=== PATIENT | female | born 1960 | race Two or more races ===

== ENCOUNTER 2016-10-31 18:00 | Emergency (ER) | payer MEDICAID ==
[~2016-10-31] VITALS: Ht 152.4 cm; Wt 70.3 kg
[~2016-10-31 18:00] MED LIST: IBUP200C14 PO
[2016-10-31 20:32] VITALS: BP 113/80
[2016-10-31] MEDS ORDERED: cefTRIAXone SOD 1,000 MG VL IM ONE (21:00)
== END 2016-10-31 22:15 | disposition home or self-care (01) ==
LOC: ER 18:02
DX: S61.250A Open bite of right index finger without damage to nail, initial encounter (principal); Z88.6 Allergy status to analgesic agent; Z79.899 Other long term (current) drug therapy; Z90.49 Acquired absence of other specified parts of digestive tract; W54.0XXA Bitten by dog, initial encounter; Y93.89 Activity, other specified; Y92.89 Other specified places as the place of occurrence of the external cause; Y99.8 Other external cause status
CPT/HCPCS: 73130; 96372; 99284; J0696

== ENCOUNTER 2020-06-16 14:57 | Inpatient (IN) | payer MEDICAID ==
[~2020-06-16] VITALS: Ht 149.9 cm; Wt 65.4 kg
[~2020-06-16 14:57] MED LIST changes: -IBUP200C14 PO; +PANT40T PO
[2020-06-16 16:20] LABS: Urine WBC None Seen /hpf (0 - 5)
[2020-06-16 16:32] LABS: Urine Bacteria FEW /hpf (None Seen); Urine Blood Negative /uL (Negative); Urine Specific Gravity 1.004 (1.001-1.035)
[2020-06-16 16:46] LABS: Amphetamine Screen, Urine NEGATIVE (NEGATIVE); Barbiturate Scree,Urine NEGATIVE (NEGATIVE); Benzodiazephine Screen, Urine NEGATIVE (NEGATIVE); Cannabinoid Screen, Urine NEGATIVE (NEGATIVE); Cocaine Screen, Urine NEGATIVE (NEGATIVE); Phencyclidine Screen, Urine NEGATIVE (NEGATIVE)
[2020-06-16 16:55] LABS: Opiate Scree,Urine NEGATIVE (NEGATIVE)
[2020-06-16] MEDS ORDERED: THIAMINE 100mg/ml INJ (200mg/2ml VIAL) IV ONE (17:00)
[2020-06-16] MEDS ORDERED: SODIUM CHLORIDE 0.9% 1,000 ML IVB ONE (17:00)
[2020-06-16] MEDS ORDERED: DEXTROSE (50%) 50ML SYRG IV ONE (17:00)
[2020-06-16] MEDS ORDERED: FOLIC ACID 1 MG, MULTIPLE VITAMIN 10 ML, MAGNESIUM SULF SDV 50% 8 MEQ, THIAMINE INJ 100... INJ STA ×5 (17:31)
[2020-06-16 18:24] LABS: Basophils # (auto) 0 10 ^3/uL (0-0.2); Basophils % (auto) 0.9 % (0.0-2.0); Eosinophils # (auto) 0 10 ^3/uL (0-0.8); Eosinophils % (auto) 0.4 % (0.0-7.0); Hematocrit 43.3 % (36.0-46.0); Hemoglobin 14.7 g/dL (12.2-16.2); Lymphocytes # (auto) 1.2 10 ^3/uL (0.4-5.4); Lymphocytes % (auto) 24.8 % (10.0-50.0); Mean Corpuscular Hemoglobin 31.4 pg (28.0-32.0); Mean Corpuscular Hgb Conc. 33.9 g/dL (32.0-36.0); Mean Corpuscular Volume 92.5 fL (80.0-100.0); Monocytes # (auto) 0.3 10 ^3/uL (0-1.3); Neutrophils # (auto) 3.5 10 ^3/uL (1.6-8.6); Neutrophils % (auto) 68.9 % (37.0-80.0); Nucleated Red Blood Cells % 0.2 %; Platelet Count (auto) 295 10^3/uL (140-450); Red Blood Cells 4.68 10^6/uL (4.0-5.20); Red Cell Distribution Width 14.2 % (11.8-14.3)
[2020-06-16 18:38] LABS: Albumin 4.2 g/dL (3.4-5.0); Calcium 9.3 mg/dL (8.5-10.1); Potassium 3.7 mmol/L (3.5-5.1)
[2020-06-16 18:44] LABS: BUN/Creatinine Ratio 14.5; Bilirubin, Total 0.4 mg/dL (0.2-1.0); Total Protein 8.3 g/dL (6.4-8.2)
[2020-06-17] MEDS ORDERED: ONDANSETRON HCL 4 MG/2 ML VIAL IV ONE (03:30)
[2020-06-17] MEDS ORDERED: ACETAMINOPHEN 325 MG TAB PO PRN (07:30)
[2020-06-17] MEDS ORDERED: D5W/SOD CHL 0.45% 1,000 ML IV SCH (07:30)
[2020-06-17] MEDS ORDERED: DOCUSATE SOD 100 MG CAP PO PRN (07:30)
[2020-06-17] MEDS ORDERED: NITROGLYCERIN 0.4 MG SL TAB SL PRN (07:30)
[2020-06-17] MEDS: LORazepam 2MG/ML-1ML VIAL IV PRN ×3 (08:00→20:18)
[2020-06-17] MEDS: FOLIC ACID 1 MG TAB PO SCH (09:56)
[2020-06-17] MEDS: ASCORBIC ACID 500 MG TAB PO SCH ×2 (09:56→22:03)
[2020-06-17] MEDS: ENOXAPARIN SOD 40 MG/0.4 ML SYRINGE SC SCH (09:57)
[2020-06-17] MEDS: ZINC SULFATE 220mg CAP or TAB PO SCH (09:57)
[2020-06-17] MEDS: THIAMINE HCL 100 MG TAB PO SCH (09:57)
[2020-06-17] MEDS ORDERED: FAMOTIDINE 20 MG TAB PO SCH (10:00)
[2020-06-17] MEDS ORDERED: MULTIPLE VITAMIN TAB PO SCH (10:00)
[2020-06-17] MEDS: ONDANSETRON HCL 4 MG/2 ML VIAL IV PRN (14:13)
[2020-06-17 14:19] LABS: Basophils # (auto) 0 10 ^3/uL (0-0.2); Basophils % (auto) 0.7 % (0.0-2.0); Eosinophils # (auto) 0 10 ^3/uL (0-0.8); Eosinophils % (auto) 0.2 % (0.0-7.0); Hematocrit 37.5 % (36.0-46.0); Hemoglobin 12.8 g/dL (12.2-16.2); Lymphocytes # (auto) 0.8 10 ^3/uL (0.4-5.4); Lymphocytes % (auto) 18.2 % (10.0-50.0); Mean Corpuscular Hemoglobin 31.5 pg (28.0-32.0); Mean Corpuscular Volume 92.5 fL (80.0-100.0); Monocytes # (auto) 0.4 10 ^3/uL (0-1.3); Neutrophils # (auto) 3.2 10 ^3/uL (1.6-8.6); Neutrophils % (auto) 71.9 % (37.0-80.0); Nucleated Red Blood Cells % 0.1 %; Platelet Count (auto) 221 10^3/uL (140-450); Red Blood Cells 4.06 10^6/uL (4.0-5.20); White Blood Cell 4.5 10^3/uL (4.4-10.8)
[2020-06-17 14:37] LABS: Albumin 3.5 g/dL (3.4-5.0)
[2020-06-17 14:41] LABS: BUN/Creatinine Ratio 21.4; Bilirubin, Total 0.7 mg/dL (0.2-1.0); Total Protein 7.1 g/dL (6.4-8.2)
[2020-06-17] MEDS: GABAPENTIN 300 MG CAP PO SCH ×2 (16:38→22:02)
[2020-06-17] MEDS: D5W/SOD CHL 0.45% 1,000 ML IV SCH (16:39)
[2020-06-17 20:00] VITALS: BP 142/86
[2020-06-17 22:00] VITALS: BP 159/97
[2020-06-17] MEDS: PANTOPRAZOLE 40 MG TAB PO SCH (22:02)
[2020-06-18] MEDS: D5W/SOD CHL 0.45% 1,000 ML IV SCH ×2 (04:00→15:12)
[2020-06-18] MEDS: ONDANSETRON HCL 4 MG/2 ML VIAL IV PRN (04:58)
[2020-06-18] MEDS: LORazepam 2MG/ML-1ML VIAL IV PRN (04:58)
[2020-06-18 05:00] VITALS: BP 133/85
[2020-06-18] MEDS: GABAPENTIN 300 MG CAP PO SCH ×2 (05:22→15:12)
[2020-06-18 06:31] LABS: Basophils # (auto) 0 10 ^3/uL (0-0.2); Basophils % (auto) 0.5 % (0.0-2.0); Eosinophils # (auto) 0.1 10 ^3/uL (0-0.8); Eosinophils % (auto) 1.8 % (0.0-7.0); Hematocrit 39.3 % (36.0-46.0); Hemoglobin 13.5 g/dL (12.2-16.2); Lymphocytes # (auto) 0.8 10 ^3/uL (0.4-5.4); Lymphocytes % (auto) 21.3 % (10.0-50.0); Mean Corpuscular Hemoglobin 31.4 pg (28.0-32.0); Mean Corpuscular Hgb Conc. 34.4 g/dL (32.0-36.0); Mean Corpuscular Volume 91.2 fL (80.0-100.0); Monocytes # (auto) 0.3 10 ^3/uL (0-1.3); Monocytes % (auto) 8.4 % (0.0-12.0); Neutrophils # (auto) 2.6 10 ^3/uL (1.6-8.6); Platelet Count (auto) 182 10^3/uL (140-450); Red Blood Cells 4.31 10^6/uL (4.0-5.20); Red Cell Distribution Width 13.5 % (11.8-14.3); White Blood Cell 3.8 10^3/uL (4.4-10.8)
[2020-06-18 06:44] LABS: Calcium 7.9 mg/dL (8.5-10.1); Potassium 3.5 mmol/L (3.5-5.1)
[2020-06-18 06:50] LABS: BUN/Creatinine Ratio 16.3; Bilirubin, Total 0.5 mg/dL (0.2-1.0); Total Protein 6.4 g/dL (6.4-8.2)
[2020-06-18 08:00] VITALS: BP 120/82
[2020-06-18 09:00] VITALS: BP 120/82
[2020-06-18] MEDS: FOLIC ACID 1 MG TAB PO SCH (09:22)
[2020-06-18] MEDS: ASCORBIC ACID 500 MG TAB PO SCH (09:23)
[2020-06-18] MEDS: THIAMINE HCL 100 MG TAB PO SCH (09:23)
[2020-06-18] MEDS: PANTOPRAZOLE 40 MG TAB PO SCH (09:23)
[2020-06-18] MEDS: ENOXAPARIN SOD 40 MG/0.4 ML SYRINGE SC SCH (09:23)
[2020-06-18] MEDS: ZINC SULFATE 220mg CAP or TAB PO SCH (11:10)
[2020-06-18 13:00] VITALS: BP 151/83
[2020-06-18 17:00] VITALS: BP 136/85
[2020-06-18] MEDS ORDERED: GABA300C10 PO (18:52)
[2020-06-18] MEDS ORDERED: FOLI1TAB6 PO (18:52)
[2020-06-18] MEDS ORDERED: THIA100T10 PO (18:52)
[2020-06-18 20:04] VITALS: BP 136/85
== END 2020-06-18 22:30 | disposition home or self-care (01) | DRG 52 ==
LOC: ER 14:57 → EDBD 14:57 → TELE 14:58 → TELE-EAST 06-17 17:52 → TELE-WESTW 06-17 23:05
PROVIDERS: ADMIT Nurse Practitioner Family; ATTEND Internal Medicine
DX: G93.41 Metabolic encephalopathy (principal); E16.2 Hypoglycemia, unspecified; F10.129 Alcohol abuse with intoxication, unspecified; K21.9 Gastro-esophageal reflux disease without esophagitis; F32.9 Major depressive disorder, single episode, unspecified; Z20.822 Contact with and (suspected) exposure to COVID-19; F17.200 Nicotine dependence, unspecified, uncomplicated; F41.9 Anxiety disorder, unspecified; X58.XXXA Exposure to other specified factors, initial encounter; S05.11XA Contusion of eyeball and orbital tissues, right eye, initial encounter; Z85.3 Personal history of malignant neoplasm of breast; Z90.49 Acquired absence of other specified parts of digestive tract; Z79.899 Other long term (current) drug therapy; Z88.5 Allergy status to narcotic agent; Z88.6 Allergy status to analgesic agent; Y93.89 Activity, other specified; Y92.89 Other specified places as the place of occurrence of the external cause; Y99.8 Other external cause status; Y90.8 Blood alcohol level of 240 mg/100 ml or more
CPT/HCPCS: 36415; 70450; 71045; 80053; 80307; 80320; 81001; 82962; 83735; 85025; 87426; G0378; J2405

== ENCOUNTER 2020-07-13 14:47 | Emergency (ER) | payer MEDICAID ==
[~2020-07-13] VITALS: Ht 170.2 cm; Wt 72.6 kg
[~2020-07-13 14:47] MED LIST changes: +FOLI1TAB6 PO; +GABA300C10 PO; +THIA100T10 PO
[2020-07-13 15:15] VITALS: BP 125/75
== END 2020-07-13 15:35 | disposition left against medical advice (07) ==
LOC: EDBD 14:47 → ER 14:47 → EDUNIT# 14:47 → ER 15:35
DX: R51.9 Headache, unspecified (principal); Z53.21 Procedure and treatment not carried out due to patient leaving prior to being seen by health care provider; Y08.89XA Assault by other specified means, initial encounter; Y93.89 Activity, other specified; Y92.89 Other specified places as the place of occurrence of the external cause; Y99.8 Other external cause status

== ENCOUNTER 2022-12-19 11:35 | Inpatient (IN) | payer MEDICAID ==
[~2022-12-19] VITALS: Ht 157.5 cm; Wt 61.1 kg
[~2022-12-19 11:35] MED LIST changes: +FOLI-119 PO; -FOLI1TAB6 PO; +GABA-1250 PO; -GABA300C10 PO
[2022-12-19] MEDS ORDERED: SODIUM CHLORIDE 0.9% 1,000 ML IV ONE (12:00)
[2022-12-19 12:17] LABS: Basophils # (auto) 0 10 ^3/uL (0-0.2); Basophils % (auto) 0.3 % (0.0-2.0); Eosinophils # (auto) 0.1 10 ^3/uL (0-0.8); Eosinophils % (auto) 2.5 % (0.0-7.0); Hematocrit 43.8 % (36.0-46.0); Hemoglobin 14.4 g/dL (12.2-16.2); Lymphocytes # (auto) 1.7 10 ^3/uL (0.4-5.4); Lymphocytes % (auto) 44.7 % (10.0-50.0); Mean Corpuscular Hemoglobin 29.3 pg (28.0-32.0); Monocytes # (auto) 0.2 10 ^3/uL (0-1.3); Monocytes % (auto) 4.9 % (0.0-12.0); Neutrophils # (auto) 1.8 10 ^3/uL (1.6-8.6); Neutrophils % (auto) 47.6 % (37.0-80.0); Nucleated Red Blood Cells % 0.3 %; Red Blood Cells 4.92 10^6/uL (4.0-5.20); Red Cell Distribution Width 15.8 % (11.8-14.3); White Blood Cell 3.8 10^3/uL (4.4-10.8)
[2022-12-19] MEDS ORDERED: chlordiazePOXIDE HCL 5 MG CAP PO ONE (12:30)
[2022-12-19 12:49] LABS: Alanine Aminotransferase 100 U/L (7-40); Albumin 4.1 g/dL (3.2-4.8); Alkaline Phosphatase 84 U/L (46-116); Anion Gap 14.1 (5-15); Aspartate Aminotransferase 161 U/L (13-40); BUN/Creatinine Ratio 11.5 (10.0-20.0); Blood Urea Nitrogen 7 mg/dL (9-23); Calcium 8.3 mg/dL (8.5-10.1); Carbon Dioxide 18.9 mmol/L (20-30); Chloride 112 mmol/L (98-107); Glucose 70 mg/dL (74-106); Potassium 3.8 mmol/L (3.5-5.1); Sodium 145 mmol/L (136-145)
[2022-12-19 12:50] LABS: Bilirubin, Total 0.5 mg/dL (0.2-1.0); Total Protein 6.8 g/dL (5.7-8.2)
[2022-12-19] MEDS: FOLIC ACID 1 MG, MULTIPLE VITAMIN 10 ML, MAGNESIUM SULF SDV 50% 8 MEQ, THIAMINE INJ 100... INJ SCH ×5 (13:31)
[2022-12-20] MEDS ORDERED: ONDANSETRON ODT 4 MG TAB PO ONE (07:45)
[2022-12-20] MEDS ORDERED: chlordiazePOXIDE HCL 25 MG CAP PO ONE (07:45)
[2022-12-20] MEDS ORDERED: DEXTROSE (50%) 50ML SYRG IV ONE ×2 (08:00)
[2022-12-20 08:12] VITALS: PULSE 68; RESP 16; O2SAT 96
[2022-12-20] MEDS ORDERED: METOCLOPRAMIDE HCL 5MG/ml INJ 2ml VIAL IV ONE (09:45)
[2022-12-20] MEDS: FOLIC ACID 1 MG, MULTIPLE VITAMIN 10 ML, MAGNESIUM SULF SDV 50% 8 MEQ, THIAMINE INJ 100... INJ SCH ×5 (12:00)
[2022-12-20 14:10] VITALS: PULSE 93; RESP 20; O2SAT 96
[2022-12-20] MEDS ORDERED: LORazepam 2MG/ML-1ML VIAL IV ONE ×2 (15:00)
[2022-12-20] MEDS ORDERED: PROMETHAZINE HCL 25 MG/ML 1ML IV PRN (16:00)
[2022-12-20] MEDS ORDERED: NITROGLYCERIN 0.4 MG SL TAB SL PRN (16:00)
[2022-12-20] MEDS ORDERED: DEXTROSE (50%) 50ML SYRG IV PRN (16:00)
[2022-12-20] MEDS ORDERED: SODIUM CHLORIDE 0.9% 1,000 ML IVB ONE (16:00)
[2022-12-20] MEDS ORDERED: ACETAMINOPHEN 325 MG TAB PO PRN (16:00)
[2022-12-20 16:36] LABS: Basophils # (auto) 0 10 ^3/uL (0-0.2); Basophils % (auto) 0.8 % (0.0-2.0); Eosinophils # (auto) 0.1 10 ^3/uL (0-0.8); Eosinophils % (auto) 1.8 % (0.0-7.0); Hematocrit 36.6 % (36.0-46.0); Hemoglobin 12.2 g/dL (12.2-16.2); Lymphocytes # (auto) 0.7 10 ^3/uL (0.4-5.4); Lymphocytes % (auto) 21.3 % (10.0-50.0); Mean Corpuscular Hemoglobin 29.4 pg (28.0-32.0); Mean Corpuscular Hgb Conc. 33.3 g/dL (32.0-36.0); Mean Corpuscular Volume 88.4 fL (80.0-100.0); Monocytes # (auto) 0.2 10 ^3/uL (0-1.3); Monocytes % (auto) 6.6 % (0.0-12.0); Neutrophils # (auto) 2.3 10 ^3/uL (1.6-8.6); Neutrophils % (auto) 69.5 % (37.0-80.0); Nucleated Red Blood Cells % 0.2 %; Red Blood Cells 4.14 10^6/uL (4.0-5.20); Red Cell Distribution Width 14.9 % (11.8-14.3); White Blood Cell 3.3 10^3/uL (4.4-10.8)
[2022-12-20 16:50] LABS: Alanine Aminotransferase 67 U/L (7-40); Albumin 3.6 g/dL (3.2-4.8); Alkaline Phosphatase 73 U/L (46-116); Anion Gap 9.2 (5-15); Aspartate Aminotransferase 69 U/L (13-40); BUN/Creatinine Ratio 12.5 (10.0-20.0); Blood Alcohol < 3.0 mg/dL (<10); Blood Urea Nitrogen 6 mg/dL (9-23); Calcium 8.3 mg/dL (8.5-10.1); Carbon Dioxide 20.8 mmol/L (20-30); Chloride 108 mmol/L (98-107); Glucose 71 mg/dL (74-106); Magnesium 1.5 mg/dL (1.6-2.6); Potassium 3.5 mmol/L (3.5-5.1); Sodium 138 mmol/L (136-145)
[2022-12-20 16:51] LABS: Bilirubin, Total 0.7 mg/dL (0.2-1.0); Total Protein 5.6 g/dL (5.7-8.2)
[2022-12-20 16:58] LABS: INR 1.14 (0.9-1.15); Prothrombin Time 11.9 sec (9.3-11.8)
[2022-12-20] MEDS: ACCU-CHEK COMFORT CURVE STRIP VI SCH (18:00)
[2022-12-20] MEDS: InsuLIN REG 1unit/0.01ml Soln (100units/ml) SC SCH (18:00)
[2022-12-20] MEDS ORDERED: LORazepam 2MG/ML-1ML VIAL IV SCH (19:00)
[2022-12-20] MEDS ORDERED: LORazepam 2MG/ML-1ML VIAL IV PRN (21:15)
[2022-12-20] MEDS ORDERED: METOCLOPRAMIDE HCL 5MG/ml INJ 2ml VIAL IV PRN (21:15)
[2022-12-20 21:43] VITALS: PULSE 66; RESP 25; O2SAT 97
[2022-12-20] MEDS: PANTOPRAZOLE 40 MG/10 ML VIAL INJ IV SCH (22:15)
[2022-12-21] VITALS (13 sets, daily range): BP systolic 96–151; BP diastolic 61–91; PULSE 64–99; RESP 11–25; TEMP 96.9–98.6; O2SAT 94–98
[2022-12-21] MEDS: chlordiazePOXIDE HCL 5 MG CAP PO SCH ×5 (01:47→23:18)
[2022-12-21 03:08] LABS: Urine Bacteria NONE SEEN /hpf (None Seen); Urine Blood Negative /uL (Negative); Urine Clarity Clear (Clear); Urine Color Yellow (Yellow); Urine Mucus FEW (None Seen); Urine Protein, UAD Negative (Negative); Urine Specific Gravity 1.017 (1.001-1.035); Urine WBC 2 /hpf (0 - 5); Urine pH 6.5 (5.0-8.0)
[2022-12-21 03:17] LABS: Amphetamine Screen, Urine Neg (NEGATIVE); Benzodiazephine Screen, Urine Pos (NEGATIVE)
[2022-12-21 03:18] LABS: Barbiturate Scree,Urine Neg (NEGATIVE); Cannabinoid Screen, Urine Neg (NEGATIVE); Cocaine Screen, Urine Neg (NEGATIVE); Opiate Scree,Urine Neg (NEGATIVE); Phencyclidine Screen, Urine Neg (NEGATIVE)
[2022-12-21 05:07] LABS: Alanine Aminotransferase 61 U/L (7-40); Albumin 3.4 g/dL (3.2-4.8); Alkaline Phosphatase 75 U/L (46-116); Anion Gap 9.1 (5-15); Aspartate Aminotransferase 64 U/L (13-40); BUN/Creatinine Ratio 11.5 (10.0-20.0); Blood Urea Nitrogen 6 mg/dL (9-23); Carbon Dioxide 20.9 mmol/L (20-30); Chloride 109 mmol/L (98-107); Glucose 65 mg/dL (74-106); Potassium 3.3 mmol/L (3.5-5.1); Sodium 139 mmol/L (136-145)
[2022-12-21 05:08] LABS: Bilirubin, Total 0.7 mg/dL (0.2-1.0); Total Protein 5.5 g/dL (5.7-8.2)
[2022-12-21] MEDS: ACCU-CHEK COMFORT CURVE STRIP VI SCH ×5 (05:54→23:19)
[2022-12-21] MEDS: InsuLIN REG 1unit/0.01ml Soln (100units/ml) SC SCH ×5 (05:54→23:19)
[2022-12-21] MEDS ORDERED: POTASSIUM CHL 20 Meq TABLET PO ONE (06:45)
[2022-12-21] MEDS: PANTOPRAZOLE 40 MG/10 ML VIAL INJ IV SCH ×2 (09:46→21:59)
[2022-12-21] MEDS: FOLIC ACID 1 MG, MULTIPLE VITAMIN 10 ML, MAGNESIUM SULF SDV 50% 8 MEQ, THIAMINE INJ 100... INJ SCH ×5 (13:03)
[2022-12-21] MEDS: ACETAMINOPHEN 500 MG TAB PO PRN ×2 (15:26→21:58)
[2022-12-22 05:00] VITALS: BP 147/76; PULSE 71; RESP 19; TEMP 98; O2SAT 96
[2022-12-22] MEDS: chlordiazePOXIDE HCL 5 MG CAP PO SCH ×2 (05:20→13:14)
[2022-12-22] MEDS: ACCU-CHEK COMFORT CURVE STRIP VI SCH ×2 (05:23→12:37)
[2022-12-22] MEDS: InsuLIN REG 1unit/0.01ml Soln (100units/ml) SC SCH ×2 (05:23→12:00)
[2022-12-22 08:00] VITALS: PULSE 69; PULSE 77; RESP 20; O2SAT 99
[2022-12-22 09:00] VITALS: BP 128/69; PULSE 77; RESP 20; TEMP 98; O2SAT 99
[2022-12-22] MEDS: PANTOPRAZOLE 40 MG/10 ML VIAL INJ IV SCH (09:12)
[2022-12-22 13:00] VITALS: BP 140/79; PULSE 74; RESP 20; TEMP 98.4; O2SAT 97
[2022-12-22] MEDS: ACETAMINOPHEN 500 MG TAB PO PRN (13:20)
[2022-12-22] MEDS: FOLIC ACID 1 MG, MULTIPLE VITAMIN 10 ML, MAGNESIUM SULF SDV 50% 8 MEQ, THIAMINE INJ 100... INJ SCH ×5 (13:36)
[2022-12-22] MEDS ORDERED: GABA-1250 PO (15:12)
[2022-12-22] MEDS ORDERED: TRAZ-228 PO (15:12)
[2022-12-22 15:46] VITALS: BP 140/79; PULSE 74; RESP 20; TEMP 98.4; O2SAT 97
== END 2022-12-22 16:48 | disposition home or self-care (01) | DRG 772 ==
LOC: ER 11:35 → TELE 12-20 16:07 → DOU IN ICU 12-21 03:53 → TELE-CENTR 12-21 21:28
PROVIDERS: ADMIT Hospitalist; ATTEND Hospitalist
PROC: HZ31ZZZ Individual Counseling for Substance Abuse Treatment, Behavioral (ICD-10-PCS; principal; 2022-12-22)
DX: F10.220 Alcohol dependence with intoxication, uncomplicated (principal); F10.239 Alcohol dependence with withdrawal, unspecified; F41.9 Anxiety disorder, unspecified; F32.A Depression, unspecified; F10.229 Alcohol dependence with intoxication, unspecified; K21.9 Gastro-esophageal reflux disease without esophagitis; G47.00 Insomnia, unspecified; R79.89 Other specified abnormal findings of blood chemistry; Z90.49 Acquired absence of other specified parts of digestive tract
CPT/HCPCS: 36415; 80053; 80307; 80320; 81001; 82962; 83605; 83735; 85025; 85610; 87081; 96361; 96374; 97110; 97116; 97163; 97530; C9113; G0378; Q0162

== ENCOUNTER 2023-02-04 10:35 | Inpatient (IN) | payer MEDICAID ==
[~2023-02-04] VITALS: Ht 148.6 cm; Wt 68.0 kg
[~2023-02-04 10:35] MED LIST changes: +TRAZ-228 PO
[2023-02-04] MEDS ORDERED: ONDANSETRON ODT 4 MG TAB PO ONE (11:30)
[2023-02-04] MEDS ORDERED: LORazepam 2MG/ML-1ML VIAL IV ONE (11:30)
[2023-02-04] MEDS ORDERED: DONNATAL 5ml ORAL Elix (BELLADONNA ALK-PHENOBARB) PO ONE (11:30)
[2023-02-04] MEDS ORDERED: SODIUM CHLORIDE 0.9% 1,000 ML IVB ONE (11:30)
[2023-02-04] MEDS ORDERED: PANTOPRAZOLE 40 MG/10 ML VIAL INJ IV ONE (11:30)
[2023-02-04] MEDS ORDERED: MAALOX PLUS or MAALOX 30 ML PO ONE (11:30)
[2023-02-04 11:37] LABS: Basophils # (auto) 0 10 ^3/uL (0-0.2); Basophils % (auto) 0.7 % (0.0-2.0); Eosinophils # (auto) 0 10 ^3/uL (0-0.8); Eosinophils % (auto) 0.1 % (0.0-7.0); Hematocrit 43.5 % (36.0-46.0); Hemoglobin 14.2 g/dL (12.2-16.2); Lymphocytes # (auto) 0.9 10 ^3/uL (0.4-5.4); Lymphocytes % (auto) 16.6 % (10.0-50.0); Mean Corpuscular Hemoglobin 29.6 pg (28.0-32.0); Mean Corpuscular Hgb Conc. 32.6 g/dL (32.0-36.0); Mean Corpuscular Volume 90.7 fL (80.0-100.0); Monocytes # (auto) 0.1 10 ^3/uL (0-1.3); Monocytes % (auto) 2.3 % (0.0-12.0); Neutrophils # (auto) 4.5 10 ^3/uL (1.6-8.6); Neutrophils % (auto) 80.3 % (37.0-80.0); Red Blood Cells 4.79 10^6/uL (4.0-5.20); Red Cell Distribution Width 15.3 % (11.8-14.3); White Blood Cell 5.6 10^3/uL (4.4-10.8)
[2023-02-04 12:20] LABS: Alanine Aminotransferase 91 U/L (7-40); Albumin 4.4 g/dL (3.2-4.8); Alkaline Phosphatase 69 U/L (46-116); Anion Gap 19 (5-15); Aspartate Aminotransferase 81 U/L (13-40); BUN/Creatinine Ratio 11.9 (10.0-20.0); Bilirubin, Total 0.4 mg/dL (0.2-1.0); Blood Urea Nitrogen 8 mg/dL (9-23); Calcium 8.8 mg/dL (8.7-10.4); Carbon Dioxide 17 mmol/L (20-30); Chloride 107 mmol/L (98-107); Glucose 86 mg/dL (74-106); Potassium 4.1 mmol/L (3.5-5.1); Sodium 143 mmol/L (136-145)
[2023-02-04 12:33] LABS: Magnesium 1.8 mg/dL (1.6-2.6)
[2023-02-04] MEDS ORDERED: IOHEXOL 300 MG/ML 100ML BOTTLE IJ ONE (13:33)
[2023-02-04 19:00] LABS: Amphetamine Screen, Urine Neg (NEGATIVE); Barbiturate Scree,Urine Neg (NEGATIVE); Benzodiazephine Screen, Urine Neg (NEGATIVE); Cocaine Screen, Urine Neg (NEGATIVE); Opiate Scree,Urine Neg (NEGATIVE); Phencyclidine Screen, Urine Neg (NEGATIVE)
[2023-02-04 19:01] LABS: Cannabinoid Screen, Urine Neg (NEGATIVE)
[2023-02-04 19:03] LABS: Urine Bacteria NONE SEEN /hpf (None Seen); Urine Blood Negative /uL (Negative); Urine Clarity Clear (Clear); Urine Color Yellow (Yellow); Urine Protein, UAD 1+ (Negative); Urine Urobilinogen Normal (Negative); Urine WBC <1 /hpf (0 - 5); Urine pH 6.5 (5.0-8.0)
[2023-02-04 19:06] LABS: Urine Specific Gravity > 1.050 (1.001-1.035)
[2023-02-04] MEDS ORDERED: cefTRIAXone 1GM/50ML D5W 50 ML IV ONE (20:45)
[2023-02-04] MEDS ORDERED: chlordiazePOXIDE HCL 25 MG CAP PO ONE (20:45)
[2023-02-04 22:00] VITALS: PULSE 86; RESP 16; O2SAT 94
[2023-02-05] MEDS ORDERED: MORPHINE SULFATE INJ 2 MG/ml SYRG IV PRN (01:45)
[2023-02-05] MEDS ORDERED: ONDANSETRON HCL 4 MG/2 ML VIAL IV PRN (01:45)
[2023-02-05] MEDS ORDERED: NITROGLYCERIN 0.4 MG SL TAB SL PRN (01:45)
[2023-02-05] MEDS ORDERED: METOCLOPRAMIDE HCL 5MG/ml INJ 2ml VIAL IV PRN (01:45)
[2023-02-05] MEDS ORDERED: DOCUSATE SOD 100 MG CAP PO PRN (01:45)
[2023-02-05] MEDS: AZITHROMYCIN 500MG/ 250ML 250 ML IV SCH ×2 (02:28→21:59)
[2023-02-05] MEDS: SODIUM CHLORIDE 0.9% 1,000 ML IV SCH ×2 (02:28→11:45)
[2023-02-05] MEDS: chlordiazePOXIDE HCL 25 MG CAP PO SCH ×3 (05:59→20:57)
[2023-02-05] MEDS: GABAPENTIN 300 MG CAP PO SCH ×3 (05:59→22:04)
[2023-02-05 06:40] LABS: Basophils # (auto) 0.1 10 ^3/uL (0-0.2); Eosinophils # (auto) 0.1 10 ^3/uL (0-0.8); Eosinophils % (auto) 1.3 % (0.0-7.0); Hematocrit 41.2 % (36.0-46.0); Hemoglobin 13.9 g/dL (12.2-16.2); Lymphocytes # (auto) 1.7 10 ^3/uL (0.4-5.4); Lymphocytes % (auto) 23.2 % (10.0-50.0); Mean Corpuscular Hemoglobin 29.9 pg (28.0-32.0); Mean Corpuscular Hgb Conc. 33.9 g/dL (32.0-36.0); Mean Corpuscular Volume 88.3 fL (80.0-100.0); Monocytes # (auto) 0.3 10 ^3/uL (0-1.3); Monocytes % (auto) 4.1 % (0.0-12.0); Neutrophils # (auto) 5.1 10 ^3/uL (1.6-8.6); Neutrophils % (auto) 70.4 % (37.0-80.0); Nucleated Red Blood Cells % 0.1 %; Red Blood Cells 4.66 10^6/uL (4.0-5.20); White Blood Cell 7.3 10^3/uL (4.4-10.8)
[2023-02-05 06:47] LABS: Calcium 9.2 mg/dL (8.7-10.4); Chloride 103 mmol/L (98-107); Potassium 3.9 mmol/L (3.5-5.1); Sodium 136 mmol/L (136-145)
[2023-02-05 06:48] LABS: Anion Gap 13 (5-15); Carbon Dioxide 20 mmol/L (20-30)
[2023-02-05 06:53] LABS: BUN/Creatinine Ratio 11.8 (10.0-20.0); Blood Urea Nitrogen 8 mg/dL (9-23); Glucose 78 mg/dL (74-106)
[2023-02-05 10:15] VITALS: RESP 16; O2SAT 95
[2023-02-05] MEDS: FOLIC ACID 1 MG, MULTIPLE VITAMIN 10 ML, MAGNESIUM SULF SDV 50% 8 MEQ, THIAMINE INJ 100... INJ SCH ×5 (12:00)
[2023-02-05] MEDS: PANTOPRAZOLE 40 MG/10 ML VIAL INJ IV SCH (14:05)
[2023-02-05] MEDS: ENOXAPARIN SOD 40 MG/0.4 ML SYRINGE SC SCH (14:05)
[2023-02-05] MEDS: ACETAMINOPHEN 325 MG TAB PO PRN (14:06)
[2023-02-05 20:00] VITALS: PULSE 68; PULSE 77; RESP 18; O2SAT 97
[2023-02-05] MEDS: cefTRIAXone 1GM/50ML D5W 50 ML IV SCH (20:51)
[2023-02-05] MEDS: traZODone HCL 50 MG TAB PO SCH (22:04)
[2023-02-06] VITALS (7 sets, daily range): BP systolic 103–142; BP diastolic 70–88; PULSE 74–88; RESP 14–18; TEMP 97.9–98.7; O2SAT 90–98
[2023-02-06] MEDS: SODIUM CHLORIDE 0.9% 1,000 ML IV SCH ×3 (00:36→19:51)
[2023-02-06] MEDS: chlordiazePOXIDE HCL 25 MG CAP PO SCH ×4 (01:18→20:01)
[2023-02-06] MEDS: GABAPENTIN 300 MG CAP PO SCH ×3 (05:16→22:45)
[2023-02-06 06:58] LABS: Anion Gap 9 (5-15); Carbon Dioxide 22 mmol/L (20-30); Chloride 108 mmol/L (98-107); Potassium 3.4 mmol/L (3.5-5.1); Sodium 139 mmol/L (136-145)
[2023-02-06 07:00] LABS: Calcium 8.4 mg/dL (8.5-10.1)
[2023-02-06 07:04] LABS: Glucose 76 mg/dL (74-106)
[2023-02-06 07:09] LABS: Basophils # (auto) 0 10 ^3/uL (0-0.2); Basophils % (auto) 1.1 % (0.0-2.0); Eosinophils # (auto) 0.2 10 ^3/uL (0-0.8); Hematocrit 40.7 % (36.0-46.0); Hemoglobin 13.3 g/dL (12.2-16.2); Lymphocytes # (auto) 1.4 10 ^3/uL (0.4-5.4); Mean Corpuscular Hgb Conc. 32.7 g/dL (32.0-36.0); Mean Corpuscular Volume 88.9 fL (80.0-100.0); Monocytes # (auto) 0.2 10 ^3/uL (0-1.3); Monocytes % (auto) 4.3 % (0.0-12.0); Neutrophils # (auto) 2.3 10 ^3/uL (1.6-8.6); Neutrophils % (auto) 56.6 % (37.0-80.0); Nucleated Red Blood Cells % 0.6 %; Red Blood Cells 4.58 10^6/uL (4.0-5.20); Red Cell Distribution Width 14.8 % (11.8-14.3)
[2023-02-06 07:20] LABS: BUN/Creatinine Ratio 10.2 (10.0-20.0); Blood Urea Nitrogen < 5 mg/dL (9-23)
[2023-02-06] MEDS: LATUDA 20MG PO SCH (10:00)
[2023-02-06] MEDS: PANTOPRAZOLE 40 MG/10 ML VIAL INJ IV SCH (10:20)
[2023-02-06] MEDS: ENOXAPARIN SOD 40 MG/0.4 ML SYRINGE SC SCH (10:21)
[2023-02-06] MEDS: ACETAMINOPHEN 325 MG TAB PO PRN ×2 (10:28→20:00)
[2023-02-06] MEDS: FOLIC ACID 1 MG, MULTIPLE VITAMIN 10 ML, MAGNESIUM SULF SDV 50% 8 MEQ, THIAMINE INJ 100... INJ SCH ×5 (15:27)
[2023-02-06] MEDS: cefTRIAXone 1GM/50ML D5W 50 ML IV SCH (20:02)
[2023-02-06] MEDS: AZITHROMYCIN 500MG/ 250ML 250 ML IV SCH (22:45)
[2023-02-06] MEDS: traZODone HCL 50 MG TAB PO SCH (22:45)
[2023-02-07] MEDS: chlordiazePOXIDE HCL 25 MG CAP PO SCH ×3 (02:06→14:00)
[2023-02-07] MEDS: SODIUM CHLORIDE 0.9% 1,000 ML IV SCH ×2 (03:45→15:32)
[2023-02-07 05:00] VITALS: BP 105/63; PULSE 56; RESP 16; TEMP 98; O2SAT 94
[2023-02-07] MEDS: GABAPENTIN 300 MG CAP PO SCH ×2 (05:17→15:32)
[2023-02-07 06:22] LABS: Basophils # (auto) 0.1 10 ^3/uL (0-0.2); Basophils % (auto) 1.6 % (0.0-2.0); Eosinophils # (auto) 0.2 10 ^3/uL (0-0.8); Eosinophils % (auto) 4.2 % (0.0-7.0); Hematocrit 40.9 % (36.0-46.0); Hemoglobin 13.2 g/dL (12.2-16.2); Lymphocytes # (auto) 1.6 10 ^3/uL (0.4-5.4); Lymphocytes % (auto) 41.5 % (10.0-50.0); Mean Corpuscular Hemoglobin 28.8 pg (28.0-32.0); Mean Corpuscular Hgb Conc. 32.2 g/dL (32.0-36.0); Mean Corpuscular Volume 89.5 fL (80.0-100.0); Monocytes # (auto) 0.2 10 ^3/uL (0-1.3); Monocytes % (auto) 4.6 % (0.0-12.0); Neutrophils # (auto) 1.9 10 ^3/uL (1.6-8.6); Neutrophils % (auto) 48.1 % (37.0-80.0); Nucleated Red Blood Cells % 0.3 %; Red Blood Cells 4.57 10^6/uL (4.0-5.20); White Blood Cell 3.9 10^3/uL (4.4-10.8)
[2023-02-07 06:32] LABS: Chloride 110 mmol/L (98-107); Potassium 3.1 mmol/L (3.5-5.1); Sodium 140 mmol/L (136-145)
[2023-02-07 06:33] LABS: Anion Gap 6 (5-15); Calcium 8.3 mg/dL (8.7-10.4); Carbon Dioxide 24 mmol/L (20-30)
[2023-02-07 06:38] LABS: Glucose 97 mg/dL (74-106)
[2023-02-07 06:40] LABS: Blood Urea Nitrogen < 5 mg/dL (9-23)
[2023-02-07 07:03] LABS: BUN/Creatinine Ratio 15.2 (10.0-20.0)
[2023-02-07 08:00] VITALS: PULSE 79; RESP 18; O2SAT 99
[2023-02-07 08:30] VITALS: BP 108/66; PULSE 77; RESP 18; TEMP 98; O2SAT 95
[2023-02-07] MEDS: LATUDA 20MG PO SCH (10:00)
[2023-02-07] MEDS: ENOXAPARIN SOD 40 MG/0.4 ML SYRINGE SC SCH (10:20)
[2023-02-07] MEDS: PANTOPRAZOLE 40 MG/10 ML VIAL INJ IV SCH (10:20)
[2023-02-07] MEDS ORDERED: POTASSIUM CHL 20 Meq TABLET PO ONE ×2 (11:57→12:00)
[2023-02-07 12:33] VITALS: BP 128/71; PULSE 86; RESP 18; TEMP 98; O2SAT 96
[2023-02-07] MEDS: FOLIC ACID 1 MG, MULTIPLE VITAMIN 10 ML, MAGNESIUM SULF SDV 50% 8 MEQ, THIAMINE INJ 100... INJ SCH ×5 (13:21)
[2023-02-07] MEDS ORDERED: MAGNESIUM OXIDE 400 MG TAB PO ONE (14:00)
[2023-02-07 15:00] VITALS: BP 128/76; PULSE 86; RESP 18; TEMP 36.7; O2SAT 96
== END 2023-02-07 17:00 | disposition home or self-care (01) | DRG 422 ==
LOC: ER 10:35 → EDBD 10:35 → TELE 02-05 01:39 → TELE-WESTW 02-05 18:31
PROVIDERS: ADMIT Nurse Practitioner Family; ATTEND Nurse Practitioner Family
DX: E86.0 Dehydration (principal); F10.221 Alcohol dependence with intoxication delirium; E87.20 Acidosis, unspecified; F10.231 Alcohol dependence with withdrawal delirium; F31.9 Bipolar disorder, unspecified; Y90.8 Blood alcohol level of 240 mg/100 ml or more; K29.20 Alcoholic gastritis without bleeding; K21.9 Gastro-esophageal reflux disease without esophagitis; F17.210 Nicotine dependence, cigarettes, uncomplicated; F41.9 Anxiety disorder, unspecified; F51.04 Psychophysiologic insomnia; R74.01 Elevation of levels of liver transaminase levels; Z88.5 Allergy status to narcotic agent; Z88.6 Allergy status to analgesic agent; Z90.49 Acquired absence of other specified parts of digestive tract; Z71.6 Tobacco abuse counseling
CPT/HCPCS: 36415; 71046; 74177; 80048; 80053; 80307; 80320; 81001; 83690; 83735; 84484; 85025; 87340; 96365; 97110; 97116; 97163; 97530; C9113; G0378; J0696; J2405; Q0162